=== PATIENT | male | born 1980 | race Caucasian/White ===

== ENCOUNTER → 2021-05-20 | Emergency (ER) | payer BC ==
[~2021-05-20] VITALS: Ht 175.3 cm; Wt 110.2 kg
[~2021-05-20] MED LIST: LISINOPRIL10 MG PO; PAIN RELIEF500 M1 PO
--- NOTE | 2021-05-22 15:38 | EKG ---
[facility] [address] [place], [place] [address] Signed Normal sinus rhythm Nonspecific intraventricular conduction delay Borderline ECG No previous ECGs available Confirmed by ELIZA CAREY MD ([id number] on 05/22/2021 3:38:09 PM Electronically Signed By: ELIZA CAREY MD 05/22/21 1538 PATIENT NAME: MORALES SHAH Electrocardiogram DATE OF : 82 PHYSICIAN: ELIZA CAREY MD REPORT #: [id number] REPORT IS CONFIDENTIAL AND NOT TO BE RELEASED WITHOUT AUTHORIZATION
== END ==
LOC: ED 08:53
DX: R07.89 Other chest pain (principal); I10 Essential (primary) hypertension
CPT/HCPCS: 36415; 71046; 80048; 84484; 85025; 85379; 93005; 93010; 99285-25; A9270